=== PATIENT | female | born 2000 | race Caucasian/White ===

== ENCOUNTER 2023-08-15 04:23 | Emergency (ER) | payer BC, SELFPAY ==
[2023-08-15] MEDS ORDERED: HYDROcodone/Acetaminophen 10/325 mg Tablet ONE (04:37)
[2023-08-15] MEDS ORDERED: Ibuprofen 200 MG TAB ONE (04:37)
[2023-08-15] MEDS ORDERED: Benzocaine 20% Spray 60 ML CAN TOP SCH (04:45)
[2023-08-15] MEDS ORDERED: Benzocaine-Menthol 82.5 ML CAN TOP SCH (05:00)
== END 2023-08-15 06:11 | disposition home or self-care (01) ==
LOC: CSHERS 04:23
DX: S31.41XA Laceration without foreign body of vagina and vulva, initial encounter (principal); F17.290 Nicotine dependence, other tobacco product, uncomplicated; X58.XXXA Exposure to other specified factors, initial encounter
CPT/HCPCS: 12001; 99284